=== PATIENT | female | born 1995 | race Caucasian/White ===

== ENCOUNTER 2019-04-23 13:42 | Emergency (ER) | payer SELFPAY ==
[2019-04-23 13:55] VITALS: BP 123/76; PULSE 88; TEMP 98.4; BMI 25.8
[2019-04-23] MEDS ORDERED: SODIUM CHLORIDE 0.9% 1000 ML INFUS.BAG IV ONE (13:58)
[2019-04-23 14:30] LABS: BASO % 0.9 % (0-2.0); EOS % 0.2 % (0-4.5); HEMATOCRIT 36.8 % (32.4-45.2); HEMOGLOBIN 12.5 GM/dl (10.7-15.3); LYMPH % 25.8 % (8-40); MCHC 34.1 g/dl (32.0-36.0); MEAN CELL VOLUME 87.9 fl (80-96); MEAN PLT VOLUME 9.4 fl (7.5-11.1); MONO % 9.8 % (3.8-10.2); NEUT % 63.3 % (42.8-82.8); PLATELET COUNT 196 K/MM3 (134-434); RBC 4.19 M/mm3 (3.60-5.2); RDW 11.8 % (11.6-15.6)
--- NOTE | 2019-04-23 14:31 | PDOC ---
History of Present Illness - General Chief Complaint: ,Possible Stated Complaint: BLEEDING DURING Time Seen by Provider: 04/23/19 13:58 History Source: Patient Exam Limitations: No Limitations - History of Present Illness Initial Comments: 04/23/19 14:28 Is sounds like G2, P1 currently 8 weeks by LMP of February 25 here today complaining of vaginal bleeding. Patient states that it was bleeding off and on over the last week today she started having more cramping bleeding is at this time off and on like a normal period no fever no chills does have a history of 1 prior miscarriage 1 year ago no other current complaints Past History - Past Medical History Allergies/Adverse Reactions: Allergies Allergy/AdvReac Type Severity Reaction Status Date / Time No Known Allergies Allergy Verified 04/23/19 13:43 Home Medications: Ambulatory Orders NK [No Known Home Medication] 04/23/19 COPD: No CHF: No - Reproductive History Is Patient Now?: Yes (HOME TEST) (#): 3 Para: 0 - Psycho Social/Smoking Cessation Hx Smoking History: Never smoked Have you smoked in the past 12 months: No Information on smoking cessation initiated: No Hx Alcohol Use: No Drug/Substance Use Hx: No Review of Systems - Review of Systems Constitutional: No: Chills, Diaphoresis, Fever HEENTM: No: Eye Pain Respiratory: No: Cough, Orthopnea Cardiac (ROS): No: Chest Pain, Edema ABD/GI: Yes: Nausea. No: Vomiting : Yes: Other (cramping vaginal bleeding.). No: Burning, Dysuria, Discharge Neurological: No: Headache, Numbness, Paresthesia All Other Systems: Reviewed and Negative *Physical Exam - Vital Signs Last Vital Signs Temp Pulse Resp BP Pulse Ox 98.4 F 88 20 123/76 100 04/23/19 13:43 04/23/19 13:43 04/23/19 13:43 04/23/19 13:43 04/23/19 13:43 - Physical Exam 04/23/19 14:29 Awake alert no acute distress lungs are clear bilaterally heart is regular without any murmurs rubs or gallops abdomen is soft and nontender pelvic exam is noted for normal external genitalia the Oz appears to be closed there is scant yellowish discharge in the vault there is no active bleeding visualized. Mild suprapubic tenderness no CMT no adnexal tenderness skin is warm and dry no rash patient is awake alert and oriented x3 ED Treatment Course - LABORATORY CBC & Chemistry Diagram: 04/23/19 14:10 04/23/19 14:10 - RADIOLOGY Radiology Studies Ordered: Category Date Time Status TRANSVAGINAL US PREG [US] Stat Ultrasound 04/23/19 13:59 Ordered Medical Decision Making - Medical Decision Making 04/23/19 14:30 23-year-old G2, P1 currently 8 weeks with complaints of cramping and vaginal bleeding. My pelvic exam there is no active bleeding at this time plan transvaginal ultrasound to rule out ectopic or other threatened AB or missed AB UA UCG basic labs and a type and screen 04/23/19 16:02 pt ultrasond with 8 wk 3 days IUP. dc home with fu ob/ mobile developer Discharge - Discharge Information Problems reviewed: Yes Clinical Impression/Diagnosis: - Admission No - Follow up/Referral - Patient Discharge Instructions - Post Discharge Activity
[2019-04-23 14:36] LABS: ALBUMIN 4.2 g/dl (3.4-5.0); BILIRUBIN,TOTAL 0.4 mg/dl (0.2-1); CALCIUM 9.1 mg/dl (8.5-10); CREATININE 0.4 mg/dl (0.55-1.3); POTASSIUM 3.5 mmol/L (3.5-5.1); TOT PROT 7.2 g/dl (6.4-8.2)
== END 2019-04-23 17:15 | disposition home or self-care (01) ==
LOC: FER 13:42
DX: O26.891 Other specified pregnancy related conditions, first trimester (principal); Z3A.08 8 weeks gestation of pregnancy
CPT/HCPCS: 36415; 76817-TC; 80053; 84702; 85025; 86850; 86900; 86901; 99284-25

== ENCOUNTER 2023-11-19 08:07 | Emergency (ER) | payer OTHER ==
[2023-11-19 08:14] VITALS: BP 105/75; PULSE 86; RESP 17; TEMP 99; BMI 28.1
[2023-11-19] MEDS ORDERED: LIDOCAINE 5% TOPICAL PATCH ONE (08:45)
[2023-11-19] MEDS ORDERED: PROCHLORPERAZINE INJECTION 10 MG/2 ML VIAL ONE (08:45)
[2023-11-19] MEDS ORDERED: MAGNESIUM 1GM/D5W - 1 GM/100 ML IVPB IVPB ONE (08:45)
[2023-11-19] MEDS: PROCHLORPERAZINE INJECTION 10 MG/2 ML VIAL IVPB ONE (09:15)
[2023-11-19] MEDS: MAGNESIUM SULF 50% (8.12 MEQ/2 ML-1 GM VIAL) IVPB ONE (09:15)
[2023-11-19] MEDS: LIDOCAINE 5% TOPICAL PATCH TP ONE (09:15)
== END 2023-11-19 10:49 | disposition home or self-care (01) ==
LOC: FER 08:07
PROC: 3E033GC Introduction of Other Therapeutic Substance into Peripheral Vein, Percutaneous Approach (ICD-10-PCS; principal; 2023-11-19)
PROC: 3E033GC Introduction of Other Therapeutic Substance into Peripheral Vein, Percutaneous Approach (ICD-10-PCS; 2023-11-19)
DX: R51.9 Headache, unspecified (principal); M25.512 Pain in left shoulder; G89.29 Other chronic pain
CPT/HCPCS: 84703; 99284-25